=== PATIENT | male | born 1985 | race Hispanic/Latino ===

== ENCOUNTER 2020-06-06 09:56 | Observation (INO) | payer SELFPAY ==
--- NOTE | ~2020-06-06 | XR_ITS ---
EXAMINATION: XR abdomen/kub 1V DATE: 06/07/2020 06:11 INDICATION: Right renal stone TECHNIQUE: A supine view of the abdomen on 2 radiographs was obtained. COMPARISON: 06/06/2020 FINDINGS: No interval change in a 7 x 4 mm proximal right ureteral stone projecting between the right transvers e processes of L2 and L3. Normal bowel gas pattern. Bone island at the left femoral head. IMPRESSION: 1. Unchanged 7 x 4 mm proximal right ureteral stone. Reviewed, dictated and finalized at location A.
--- NOTE | ~2020-06-06 | XR_ITS ---
XR abdomen/kub 1V 06/06/2020 12:03 Indication: Right sided ureteral stone Procedure: KUB Comparison: CT dated 06/06/2020 Findings: There is a proximal right ureteral stone at the L3 level measuring 7 x 4 mm. Bowel gas aneesh rene nonobstructive. No acute osseous abnormality. Impression: 1: Proximal right ureteral stone at the L3 level measuring 7 x 4 mm. Reviewed, dictated and finalized at location B. Impression: 1: Proximal right ureteral stone at the L3 level measuring 7 x 4 mm.
--- NOTE | ~2020-06-06 | XR_ITS ---
EXAMINATION: XR retrograde pyelo w/stent RT EXAM DATE: 06/07/2020 09:53 INDICATION: Right-sided retrograde stent placement. TECHNIQUE: Fluoroscopy used during XR retrograde pyelo w/stent RT performed by Dr. Tavo cantu. Total fluoroscopic time of 0.4 minutes. A total of 10 images obtained for the exam. The DAP for this procedure was 313 radcm2. FINDINGS: At Risk Specialist image demonstrates 7 mm proximal right ureteral stone. Images demonstrate cannulation of the right ureter, injection of it with mild right-sided hydronephrosis. A double-J ureteral stent was placed. Correlate with procedure note. IMPRESSION: Mild right hydronephrosis. Stent in position. Reviewed, dictated and finalized at location A.
--- NOTE | ~2020-06-06 | CT_ITS ---
EXAMINATION: CT abdomen pelvis wo con EXAM DATE: 06/06/2020 11:34 INDICATION: Right flank pain. TECHNIQUE: Spiral CT of the abdomen and pelvis was performed without contrast. Axial, coronal and sag ittal images were reviewed. The dose-length product (DLP) for this examination was 271.11 mGy-cm. T he exposure was tailored according to patient size (auto mA exposure control), and iterative reconstr uction (ASIR) was used as additional dose reduction technique. There is no prior study for compariso n. FINDINGS: There is a right proximal ureteral stone measuring up to 7 mm in size, with mild to moderat e obstructive nephropathy. There are two 3 mm left superior calyceal stones. There is a left renal fl uid density 3 cm lesion most likely a cyst. The prostate is unremarkable. The bladder is unremarkab le. The liver, spleen, adrenal glands and pancreas are unremarkable. Gallbladder not identified, laurel carpenter likely has had cholecystectomy. There is no retroperitoneal or pelvic lymphadenopathy. There is a large right lower quadrant fat-containing hernia dissecting in a cephalad direction betwee n the right external and internal oblique muscles. The abdominal wall defect measures about 3 cm in d iameter, with the herniated portion measuring about 9 cm in diameter by 3 cm in thickness. The appendix is not positively visualized. There is no pericecal inflammatory change to suggest appe ndicitis. The stomach and small bowel are unremarkable. There is expected amount of colonic stool. No free intraperitoneal gas. The heart is normal in size. There are no pericardial or pleural e ffusions. The lung bases are unremarkable. The bones are unremarkable. IMPRESSION: 1. Right proximal ureteral 7 mm stone, mild to moderate obstructive nephropathy. consultants dereck d appreciate baseline KUB. 2. Small left nephrolithiasis. 3. Large right lower quadrant abdominal wall fat-containing hernia. Reviewed, dictated and finalized at location A. IMPRESSION: 1. Right proximal ureteral 7 mm stone, mild to moderate obstructive nephropath y. consultants would appreciate baseline KUB. 2. Small left nephrolithiasis. 3. Large right lower quadrant abdominal wall fat-containing hernia.
[2020-06-06 10:19] VITALS: BP 128/86; PULSE 71; RESP 18; TEMP 36.1; O2SAT 98
[2020-06-06 10:36] LABS: Basophils Percent Auto 0.2 % (0.2-1.2); Eosinophils Percent Auto 0.3 % (0-4.4); Hemoglobin 17.8 g/dL (14.0-18.0); Immature Granulocyte Absolute 0.02 K/mm3 (0.00-0.031); Immature Granulocyte Percent A 0.2 % (0-0.5); Lymphocytes Absolute Auto 1.86 K/mm3 (0.9-3.2); Lymphocytes Percent Auto 19.1 % (18.3-44.2); Mean Corpuscular HGB Conc 35.6 g/dl (32-36); Mean Corpuscular Hemoglobin 31.9 pg (26-34); Mean Corpuscular Volume 89.6 fl (80-100); Mean Platelet Volume 9.8 fl (7.4-10.4); Monocytes Percent Auto 9.9 % (2.6-8.5); Neutrophils Absolute Auto 6.9 K/mm3 (1.3-6.7); Neutrophils Percent Auto 70.3 % (45.5-73.1); Platelet Count Result 319 k/mm3 (150-375); Red Blood Count 5.58 M/mm3 (4.6-6.20); Red Cell Distribution Width 12.9 % (11.5-14.5); White Blood Count 9.8 K/mm3 (4.5-10.0)
[2020-06-06 10:46] LABS: Anion Gap 10 mmol/L (8-16); Blood Urea Nitrogen 9 mg/dL (9-20); Calcium 8.8 mg/dL (8.4-10.2); Carbon Dioxide 27 mmol/L (22-30); Chloride 101 mmol/L (98-107); Estimated CRCL calculation 61 ml/min; Estimated Glomerular Filt Rate 59; Glucose 124 mg/dL (75-110); Potassium 3.7 mmol/L (3.4-5.0); Sodium 138 mmol/L (137-145)
[2020-06-06 11:29] LABS: Add Urine Microscopic? YES; Appearance Urine Clear (Clear); Bilirubin Urine Negative (Negative); Blood Urine 1+ (Negative); Color Urine Yellow (Yellow); Glucose Urine UA Negative (Negative); Ketones Urine Trace mg/dL (Negative); Leukocyte Esterase Ur Negative LEU/UL (Negative); Mucus Urine Rare /lpf; Nitrate Urine Negative (Negative); Protein Urine 1+ mg/dL (Negative); RBC Urine 21-50 /hpf (0-2); Specific Grav Ur 1.019 (1.001-1.035); Squamous Epithelial Cell Urine Rare /hpf (Few); WBC Urine 0-3 /hpf
[2020-06-06] MEDS: ONDANSETRON INJ 4 MG/2 ML VIAL IV PUSH (11:36)
[2020-06-06] MEDS: SODIUM CHLORIDE 0.9% IV 1,000 ML 999 ML IV CONT (11:36)
[2020-06-06] MEDS: KETOROLAC 15 MG/ML VIAL (*BKC) IV PUSH (11:38)
--- NOTE | 2020-06-06 11:56 | ED.GENADULT ---
HPI - General Adult General Chief complaint: Nausea/Vomiting/Diarrhea Stated complaint: ABD/R FLANK PAIN Time Seen by Provider: 06/06/20 10:57 History of Present Illness HPI narrative: Patient is a 34-year-old male who presents ER with right-sided flank pain. Ongoing for last 4 days. Associated with hematuria as well as some dysuria. Reports mild chills but no fevers. Has had similar pain in the past but no formal diagnosis. Told he could have had a kidney stone at one point. Has tried Tylenol without improvement of pain. Pain was intermittent at onset but now it is more persistent and radiates from the right flank down into the right groin. Related Data Allergies Allergy/AdvReac Type Severity Reaction Status Date / Time No Known Allergies Allergy Verified 06/06/20 10:26 Review of Systems Review of Systems: All systems reviewed & are unremarkable except as noted in HPI and below Constitutional: Constitutional: Reports chills, Denies fever(s) and Denies weakness ENT: Denies nasal congestion and Denies sore throat Cardiovascular: Cardiovascular: Denies chest pain and Denies rapid heart rate Respiratory: Respiratory: Denies cough and Denies dyspnea Gastrointestinal: Gastrointestinal: Reports heartburn, Denies diarrhea, Reports nausea and Reports vomiting Genitourinary: Genitourinary: Reports hematuria, Reports dysuria and Reports urinary frequency PMFSH Past Medical History Medical History (Updated 06/06/20 @ 14:34 by Baljeet Riley MD) Healthy adult male Surgical History Surgical History (Updated 06/06/20 @ 11:57 by Baljeet Riley MD) History of appendectomy History of cholecystectomy Social History Social History (Updated 06/06/20 @ 11:57 by Baljeet Riley MD) Smoking status: Never smoker Exam Narrative: Exam Narrative: GENERAL: Well-appearing, well-nourished, and in no acute distress. HEAD: Normocephalic, atraumatic. ENT: Mucous membranes moist. CHEST: Clear to auscultation. No respiratory distress. HEART: Regular rate and rhythm. Normal peripheral pulses. ABDOMEN: Soft, nontender, nondistended. No CVA tenderness. EXTREMITIES: Normal range of motion. No edema. NEURO: NAlert and oriented x3. PSYCH: Normal mood and affect. Course Course Emergency Course: Discussed with Dr. Petersen. Patient will be admitted to go to the OR tomorrow. Will control pain with scheduled Tylenol and as needed morphine. Patient will strain his urine. Vital Signs Vital signs: Vital Signs Temperature 97.0 F L 06/06/20 10:19 Pulse Rate 71 06/06/20 10:19 Respiratory Rate 18 06/06/20 10:19 Blood Pressure 128/86 06/06/20 10:19 Pulse Oximetry 98 06/06/20 10:19 Temperature 97.0 F L 06/06/20 10:19 Pulse Rate 69 06/06/20 13:47 Respiratory Rate 17 06/06/20 13:47 Blood Pressure 125/65 06/06/20 13:47 Pulse Oximetry 100 06/06/20 13:47 Medical Decision Making Vital Signs Vital Signs: Vital Signs Temperature 97.0 F L 06/06/20 10:19 Pulse Rate 71 06/06/20 10:19 Respiratory Rate 18 06/06/20 10:19 Blood Pressure 128/86 06/06/20 10:19 Pulse Oximetry 98 06/06/20 10:19 Temperature 97.0 F L 06/06/20 10:19 Pulse Rate 69 06/06/20 13:47 Respiratory Rate 17 06/06/20 13:47 Blood Pressure 125/65 06/06/20 13:47 Pulse Oximetry 100 06/06/20 13:47 Lab Data Result diagrams: 06/06/20 10:26 06/06/20 10:26 Labs: Lab Results 06/06/20 06/06/20 06/06/20 Range/Units 10:26 10:26 10:55 WBC 9.8 (4.5-10.0) K/mm3 RBC 5.58 (4.6-6.20) M/mm3 Hgb 17.8 (14.0-18.0) g/dL Hct 50.0 (42.0-52.0) % MCV 89.6 (80-100) fl MCH 31.9 (26-34) pg MCHC 35.6 (32-36) g/dl RDW 12.9 (11.5-14.5) % Plt Count 319 (150-375) k/mm3 MPV 9.8 (7.4-10.4) fl Immature Gran % (Auto) 0.2 (0-0.5) % Neut % (Auto) 70.3 (45.5-73.1) % Lymph % (Auto) 19.1 (18.3-44.2) % [place] % (Auto) 9.9 H (2.
[2020-06-06 13:47] VITALS: BP 125/65; PULSE 69; RESP 17; O2SAT 100
[2020-06-06 15:08] VITALS: BP 116/72; PULSE 69; RESP 16; O2SAT 98
--- NOTE | 2020-06-06 15:20 | PC.NURSE ---
This patient, Judd Gallardo, was admitted to 3 [facility] Surg Room 310-01. Patient/family oriented to hospital policies and general routines including ID bracelet, bed and alarms, visiting hours, pain management, procedures, bathroom and other care routines, personal items, smoking policy, room service/diet, and visiting hours.Report received from Michelle CAMARENA. Lavern holloway. Information on how to activate the Rapid Response Team has been discussed. Patient/Family are encouraged to report perceived risks to care and to ask questions if they do not understand what they are told or what they should do.
[2020-06-06 15:30] VITALS: BP 127/74; PULSE 65; RESP 16; TEMP 36.3; O2SAT 98
[2020-06-06 15:46] VITALS: BMI 27.4
[2020-06-06] MEDS: SODIUM CHLORIDE 0.9% IV 1,000 ML 125 ML IV CONT (15:49)
--- NOTE | 2020-06-06 16:17 | PM.IMHP ---
H&P: HPI History of Present Illness Date/Time: 06/06/20 16:17 This is a very pleasant 34-year-old Welsh-speaking male. He seems the request of the emergency room here at [facility]. He is here working from [place]. He has never had a kidney stone before. He has been suffering with right-sided flank pain for the last few days. He denies any visible blood in the urine. He denies any dysuria. He denies any fevers. A CT scan shows a 7 mm right proximal ureteral stone. There is some nonobstructing left-sided small kidney stones. He is currently feeling much improved with a dose of Toradol given in the emergency room this morning before it became aware of him. He was admitted for possible definitive stone management during this admission versus a stent with lithotripsy either this or next Saturday. Of note much of this history was taken with the aid of an utilization manager Chief Complaint: Ureteral stone Review of Systems Review of Systems: All systems reviewed & are unremarkable except as noted in HPI and below PMFSH Past Medical History Medical History (Updated 06/06/20 @ 16:21 by Perry Petersen MD) Healthy adult male Surgical History Surgical History (Updated 06/06/20 @ 11:57 by Baljeet Riley MD) History of appendectomy History of cholecystectomy Social History Social History (Updated 06/06/20 @ 11:57 by Baljeet Riley MD) Smoking status: Never smoker Meds Home Medications and Allergies Allergies Allergy/AdvReac Type Severity Reaction Status Date / Time No Known Allergies Allergy Verified 06/06/20 10:26 Vital Signs Vital Signs - 24 hr 06/06/20 10:19 06/06/20 13:47 06/06/20 15:08 Temperature 97.0 F L Pulse Rate 71 69 69 Respiratory Rate 18 17 16 Blood Pressure 128/86 125/65 116/72 Pulse Oximetry 98 100 98 Exam Const: General: cooperative, healthy appearing, well developed, alert, awake and Physically active; No anxious or combative Nutritional Appearance: average body habitus Orientation/consciousness: patient oriented x3 Limitations: no limitations HENMT: Head: normal to inspection Ears: hearing grossly normal bilaterally General nose exam: Normal external nose present Face and sinus: normal facial exam Mouth: Yes Normal oral and palatal mucosa present Eyes: General: appearance normal, both eyes and all related structures Chest: Chest palpation & inspection: normal inspection of the chest Resp: Effort & Inspection: normal respiratory effort, able to speak in complete sentences, not labored, no nasal flaring and no respiratory distress GI: Inspection: normal to inspection Skin: General skin exam: normal color and no rashes or lesions noted Neuro: General: patient oriented x3 Extrem: General: normal to inspection and full ROM Psych: Appearance: grossly normal and well kempt H&P: Results Labs Labs: Short CBC 06/06/20 Range/Units 10:26 WBC 9.8 (4.5-10.0) K/mm3 Hgb 17.8 (14.0-18.0) g/dL Hct 50.0 (42.0-52.0) % Plt Count 319 (150-375) k/mm3 BMP 06/06/20 10:26 Sodium 138 Potassium 3.7 Chloride 101 Carbon Dioxide 27 BUN 9 Creatinine 1.40 H Glucose 124 H Calcium 8.8 Urine 06/06/20 Range/Units 10:55 Urine Color Yellow (Yellow) Urine Appearance Clear (Clear) Urine pH 6.0 (5.0-9.0) Ur Specific [place] 1.019 (1.001-1.035) Urine Protein 1+ H (Negative) mg/dL Urine Glucose (UA) Negative (Negative) mg/dL Assessment and Plan Assessment and plan (1) Calculus of proximal right ureter: Code(s): N20.1 - Calculus of ureter Status: Acute Assessment and Plan: He will be kept NPO after midnight. We discussed right ureteral stent with delayed lithotripsy in the next week or 2. There may be some coordination issues as the patient is only here working from [place]. Another option would be ureteroscopy, but his stone is larger and in the proximal ureter. I will discuss th
[2020-06-06 21:38] VITALS: BP 122/71; PULSE 62; RESP 18; TEMP 36.6; O2SAT 97
[2020-06-07] VITALS (12 sets, daily range): BP systolic 98–124; BP diastolic 63–85; PULSE 57–96; RESP 15–20; TEMP 36.2–36.6; O2SAT 93–100
[2020-06-07] MEDS: SODIUM CHLORIDE 0.9% IV 1,000 ML 125 ML IV CONT (00:28)
--- NOTE | 2020-06-07 09:06 | WPDANESEPPF ---
Anes - Initial Pre Proc Eval Procedure: Operation Date: 06/07/20 15:15 Proposed Procedures p Cystoscopy,Right Stent Placement - Tavo Grimaldo MD Date/Time: 06/07/20 09:06 Surgeon: Perry Petersen MD Pre Op Diagnosis: right mid ureter stone Patient Data Age: 34 Gender: M Height: 5 ft 7 in Weight: 79.5 kg Last Vital Signs Temp 97.8 F 06/07/20 05:36 Pulse 57 L 06/07/20 05:36 Resp 18 06/07/20 05:36 BP 99/70 L 06/07/20 05:36 Pulse Ox 98 06/07/20 09:00 Allergies Allergy/AdvReac Type Severity Reaction Status Date / Time No Known Allergies Allergy Verified 06/06/20 18:23 Home Medications Medication Instructions Recorded Confirmed Type No Home Medications 06/06/20 06/06/20 History Laboratory Tests 06/06/20 06/06/20 06/06/20 10:26 10:26 10:55 WBC 9.8 K/mm3 K/mm3 (4.5-10.0) RBC 5.58 M/mm3 M/mm3 (4.6-6.20) Hgb 17.8 g/dL g/dL (14.0-18.0) Hct 50.0 % % (42.0-52.0) MCV 89.6 fl fl (80-100) MCH 31.9 pg pg (26-34) MCHC 35.6 g/dl g/dl (32-36) RDW 12.9 % % (11.5-14.5) Plt Count 319 k/mm3 k/mm3 (150-375) MPV 9.8 fl fl (7.4-10.4) Immature Gran % (Auto) 0.2 % % (0-0.5) Neut % (Auto) 70.3 % % (45.5-73.1) Lymph % (Auto) 19.1 % % (18.3-44.2) [place] % (Auto) 9.9 % H % (2.6-8.5) Eos % (Auto) 0.3 % % (0-4.4) Baso % (Auto) 0.2 % % (0.2-1.2) Lymph # (Auto) 1.86 K/mm3 K/mm3 (0.9-3.2) [place] # (Auto) 1.0 K/mm3 H K/mm3 (0.1-0.6) Eos # (Auto) 0.0 K/mm3 K/mm3 (0-0.3) Baso # (Auto) 0.0 K/mm3 K/mm3 (0.0-0.1) Abs Immat Gran (auto) 0.02 K/mm3 K/mm3 (0.00-0.031) Absolute Neuts (auto) 6.9 K/mm3 H K/mm3 (1.3-6.7) Absolute Nucleated RBC 0.0 K/mm3 K/mm3 (0.0-0.012) Nucleated RBC % 0.0 % % (0.0-0.2) Sodium 138 mmol/L mmol/L (137-145) Potassium 3.7 mmol/L mmol/L (3.4-5.0) Chloride 101 mmol/L mmol/L (98-107) Carbon Dioxide 27 mmol/L mmol/L (22-30) Anion Gap 10 mmol/L mmol/L (8-16) BUN 9 mg/dL mg/dL (9-20) Creatinine 1.40 mg/dL H mg/dL (0.7-1.3) Estim Creat Clear Calc 61 ml/min ml/min Estimated GFR 59 (59 - ) Glucose 124 mg/dL H mg/dL (75-110) Calcium 8.8 mg/dL mg/dL (8.4-10.2) Urine Color Yellow (Yellow) Urine Appearance Clear (Clear) Urine pH 6.0 (5.0-9.0) Ur Specific [place] 1.019 (1.001-1.035) Urine Protein 1+ mg/dL H mg/dL (Negative) Urine Glucose (UA) Negative mg/dL mg/dL (Negative) Urine Ketones Trace mg/dL mg/dL (Negative) Ur Blood (Man) 1+ H (Negative) Urine Nitrate Negative (Negative) Urine Bilirubin Negative (Negative) Urine Urobilinogen 2.0 mg/dL H mg/dL (<2.0) Leukocyte Esterase Rfl Negative RUDY/UL RUDY/UL (Negative) Urine RBC 21-50 /hpf H /hpf (0-2) Urine WBC 0-3 /hpf /hpf Ur Squamous Epith Cells Rare /hpf /hpf (Few) Urine Mucus Rare /lpf /lpf Patient hx anesthesia problems: none Family hx anesthesia problems: none PMFSH Past Medical History Medical History (Updated 06/06/20 @ 16:21 by Perry Petersen MD) Healthy adult male Surgical History Surgical History (Updated 06/06/20 @ 11:57 by Baljeet Riley MD) History of appendectomy History of cholecystectomy Social History Social History (Updated 06/06/20 @ 11:57 by Baljeet Riley MD) Smoking status: Never smoker Alcohol intake: never Substance use: never Gender identity (if verbalized by the patient): Male Spiritual care concerns: No Anes - Eval Final PreProcedure Day of Procedure 06/07/20 09:06 Mikey
[2020-06-07] MEDS: LACTATED RINGERS 1,000 ML 30 ML IV CONT (09:09)
--- NOTE | 2020-06-07 09:24 | WPDHPUPDATE1 ---
History and Physical Update Update Date/Time: 06/07/20 09:24 History and Physical has been reviewed, including an updated exam of the patient. There are NO changes in the patient's condition. Risks, benefits, and alternatives have been discussed and questions answered. Patient agrees to proceed with procedure. Proceed with cysto, right retrograde, right stent
[2020-06-07] MEDS: ceFAZolin 2 GM/D5W 50 ML 2 GM/50 ML BAG IVPB (09:32)
--- NOTE | 2020-06-07 09:48 | P.OP_ITS ---
Procedure Note - Detailed Date of procedure: 06/07/20 Pre-op diagnosis: right mid ureter stone Post-op diagnosis: same Procedure performed: Cysto, right retrograde pyelogram, right ureteral stent placement 4.8 [place] contour Description of procedure: Patient is taken the operative suite and correctly identified. Once anesthesia was obtained he was placed in dorsal lithotomy position and prepped and draped usual sterile fashion. Nineteen [place] scope was inserted the bladder in direct vision. There were no strictures. Bladder is without any tumors. The right ureteral orifice was cannulated with a [place] and a pyelogram was performed. Stone was visualized in the proximal ureter. Contrast made its way up into the kidney. A guidewire was then placed past the stone up to the renal pelvis. 4.8 [place] contour stent was then placed with the proximal end coiled in the renal pelvis and the distal in the bladder. Bladder was drained. 2% viscous lidocaine was inserted into the urethra. Patient taken recovery room stable condition. Patient will require a outpatient lithotripsy in the near future. Anesthesia: GLMA Surgeon: Tavo Grimaldo MD Drains: Yes Packing: No Pathology: none sent Complications: No immediate complications Condition: stable Disposition: PACU
[2020-06-07] MEDS: LIDOCAINE HCL 2% GEL UROJET 10 ML PKG MUCOUS MEM (09:49)
--- NOTE | 2020-06-07 10:27 | SUR.PHASEI ---
1027 sbar faxed floor notified
[2020-06-07] MEDS: HYDROcodone/acetaminophen (*CRX) 5-325 MG TABLET 2 TAB PO ×2 (12:10→18:00)
--- NOTE | 2020-07-08 09:03 | P.DS_ITS ---
DS: Admitting Diagnosis Admitting Diagnosis Admitting Diagnosis: Ureteral Stone DS: Discharge Diagnosis Discharge Diagnosis (1) Calculus of proximal right ureter: Code(s): N20.1 - Calculus of ureter Status: Acute DS: Summary Hospital Course Hospital Course: See note below. Time Spent with Patient Time attestation: The patient was admitted following a visit to the ER for right flank pain and being diagnosed via CT scan with a 7mm right proximal ureteral stone for pain control. He went to the OR the following day on 06/07/2020 to have a Cysto, right retrograde pyelogram, right ureteral stent placement 4.[address] Malorie Grimaldo. He then proceeded to the recovery room in stable condition and to the floor for further observation. He tolerated the procedure and recovery well without any complaints. He was then discharged home with diet and activity as tolerated. he was not on any home medications to resume. He was to follow up for a Right ESWL on 06/11/2019, which was completed wi [facility]. Exam Resp: Effort & Inspection: normal respiratory effort Cardio: Rate: regular rate GI: GI Palp: Yes Soft to palpation and No Tenderness to palpation present (GI) : General: Yes no CVA tenderness Extrem: General: no edema Discharge Plan Discharge Consulting providers: eTnisha Vicente ; Jorge Hagen ; Omar Magana ; Tobias Anton Discharging Clinician: Tavo Grimaldo Patient Disposition: Home, Self-Care Activity: as tolerated Diet: as tolerated Discharge Instructions: Please call Dr. Grimaldo' office ([phone]) to schedule a follow-up appointment if you plan to stay in the area. If you return to [place], make an appointment with a urologist to get your stent removed. Patient Instructions: Antibiotic Form, Ureteral Stones (DC), Cystoscopy (DC), Ureteral Stent Placement (DC) Stand Alone Forms: General Discharge Information Follow-up/Referrals: Tavo Grimaldo MD [Physician] - Discharge Medications: No Action No Home Medications RF: 0 Date of admission: 06/06/20 14:30 Primary Care Provider: PHYSICIAN,[employer] Admitting Provider: Perry Petersen Attending physician on admission: Tavo Grimaldo Condition: Stable
== END 2020-06-07 19:00 | disposition home or self-care (01) ==
LOC: ANHED 14:44 → ANH3MEDSUR 16:08
PROVIDERS: Emergency Medicine; Admitting Provider Urology; Emergency Provider Emergency Medicine; Visit Provider Urology
PROC: (CPT 52352; principal; 2020-06-07 15:15)
DX: N13.2 Hydronephrosis with renal and ureteral calculous obstruction (principal); E66.9 Obesity, unspecified; Z68.27 Body mass index [BMI] 27.0-27.9, adult
CPT/HCPCS: 52332; 36415; 74018; 74176; 74420; 80048; 81001; 85025; 87086; 96361; 96365; 96367; 96375; 96376; 99285; A9270; C1758; C1769; C2617; G0378; G0379; J0131; J0690; J1100; J1885; J2250; J2405; J2704; J3010; J7030; J7120; Q9966

== ENCOUNTER → 2020-06-09 00:34 | Outpatient (CLI) | payer SELFPAY ==
[2020-06-09 17:33] LABS: SARS-CoV-2 RNA PCR Negative
== END ==
PROVIDERS: Visit Provider Urology
DX: Z01.812 Encounter for preprocedural laboratory examination (principal); Z20.822 Contact with and (suspected) exposure to COVID-19
CPT/HCPCS: C9803; U0003; U0005

== ENCOUNTER 2020-06-10 04:45 | Day surgery (SDC) | payer SELFPAY ==
[2020-06-08 14:40] VITALS: BMI 25.9
--- NOTE | 2020-06-08 14:43 | PC.NURSE ---
No change in health history since admission confirmed with pt thru lang interpreter service. Inserter - Kayla ID# [id number].
[2020-06-10] VITALS (8 sets, daily range): BP systolic 93–120; BP diastolic 62–91; PULSE 64–92; RESP 14–22; TEMP 36.1–36.8; O2SAT 94–100; BMI 26.2
--- NOTE | ~2020-06-10 | XR_ITS ---
XR abdomen/kub 1V 06/10/2020 12:00 Indication: Preop lithotripsy Procedure: KUB Comparison: 06/07/2020 Findings: There is a right internal ureteral stent. There is a stone at the L2 level just below the t ransverse process. Bowel gas pattern nonobstructive. There are stones in the upper pole of the left k idney. No acute osseous abnormality. Impression: 1: Proximal right ureteral/UVJ stone at the L2 level. 2: Left nephrolithiasis. Reviewed, dictated and finalized at location B. Impression: 1: Proximal right ureteral/UVJ stone at the L2 level. 2: Left nephrolithiasis.
--- NOTE | 2020-06-10 12:08 | WPDHPUPDATE1 ---
History and Physical Update Update Date/Time: 06/10/20 12:08 History and Physical has been reviewed, including an updated exam of the patient. There are NO changes in the patient's condition. Risks, benefits, and alternatives have been discussed and questions answered. Patient agrees to proceed with procedure. Proceed with ESWL of right ureteral calculus
--- NOTE | 2020-06-10 12:46 | P.PNAN_ITS ---
Anes - Initial Pre Proc Eval Procedure: Operation Date: 06/10/20 14:00 Proposed Procedures p Right Ureteral Extracorporeal Shock Wave Lithotripsy - Tavo Grimaldo MD Date/Time: 06/10/20 12:46 Surgeon: Tavo Grimaldo MD Pre Op Diagnosis: Right Ureteral Stone Patient Data Age: 34 Gender: M Height: 5 ft 7 in Weight: 75.3 kg Allergies Allergy/AdvReac Type Severity Reaction Status Date / Time No Known Allergies Allergy Verified 06/10/20 12:31 Home Medications Medication Instructions Recorded Confirmed Type No Home Medications 06/06/20 06/10/20 History Patient hx anesthesia problems: none Family hx anesthesia problems: none PMFSH Past Medical History Medical History Healthy adult male Surgical History Surgical History History of appendectomy History of cholecystectomy Social History Social History Smoking status: Never smoker Alcohol intake: never Substance use: never Gender identity (if verbalized by the patient): Male Spiritual care concerns: No Anes - Eval Final PreProcedure Day of Procedure 06/10/20 12:46 Patient weight: overweight Heart: regular rate and rhythm Lungs: clear to auscultation Airway: Mallampati scale class II Neurological: other (alert) Last oral intake: >/= 8 hours ASA classification: II Emergent: no Anesthetic plan: proceed Anesthesia type and monitoring: general LMA and standard monitoring Other findings: responses per motor vehicle parts interpreter Informed Consent: The patient's anesthetic plan and its attendant risks and benefits were discussed with the patient/family/POA. Questions were solicited and answers provided to the satisfaction of the patient/family/POA.
[2020-06-10] MEDS: LACTATED RINGERS 1,000 ML 30 ML IV CONT ×2 (13:05→14:49)
--- NOTE | 2020-06-10 13:22 | SUR.PREOP ---
1225; PT MAINLY AMERICAN SPEAKING. USED DOCUMENT DESIGN SPECIALIST FOR PREOP QUESTIONS, CONSENT FOR SURGERY. SPOUSE AT BEDSIDE, SHE SPEAKS SLIGHTLY MORE GABONESE. ALL QUESTIONS ANSWERED PER DOCUMENT DESIGN SPECIALIST
[2020-06-10 13:34] LABS: INR 0.9
[2020-06-10 13:35] LABS: Partial Thromboplastin Time 28.8 SECONDS (22.3-36.8)
[2020-06-10] MEDS: ceFAZolin 2 GM/D5W 50 ML 2 GM/50 ML BAG IVPB (13:35)
--- NOTE | 2020-06-10 14:22 | PM.PROC ---
Procedure Note - Detailed Date of procedure: 06/10/20 Pre-op diagnosis: Right Ureteral Stone Post-op diagnosis: same Procedure performed: ESWL right ureteral calculus. Description of procedure: Patient is taken the operative suite and correctly identified. Once anesthesia was obtained stone was localized in both planes. After 2700 shocks the patient became light with anesthetic. He then had some emesis. At this point it was decided to terminate the procedure. He is taken recovery room stable condition. Patient is going to [place] on Saturday will need to follow up with urologist locally for another KUB and to see how well the stone is fragmented. Anesthesia: GLMA Surgeon: Tavo Grimaldo MD Drains: Yes Packing: No Pathology: none sent Complications: No immediate complications Condition: stable Disposition: PACU
--- NOTE | 2020-06-10 14:58 | SUR.PHASEI ---
USE OF STRATUS FOR INTERPRETATION, CLIVE [id number].DENIES NAUSEA,SLIGHT PAIN,TOLERABLE.
[2020-06-10] MEDS: fentaNYL CITRATE INJ (*CRX) 100 MCG/2 ML VIAL 25 MCG IV PUSH (15:12)
--- NOTE | 2020-07-07 15:05 | PM.DS ---
DS: Admitting Diagnosis Admitting Diagnosis Admitting Diagnosis: Right Ureteral Stone DS: Discharge Diagnosis Discharge Diagnosis (1) Calculus of proximal right ureter: Code(s): N20.1 - Calculus of ureter Status: Acute DS: Summary Hospital Course Hospital Course: See below Time Spent with Patient Time attestation: The patient was admitted following a visit to the ER for right flank pain and being diagnosed via CT scan with a 7mm right proximal ureteral stone for pain control. He went to the OR the following day on 06/07/2020 to have a Cysto, right retrograde pyelogram, right ureteral stent placement 4.[address] Malorie Grimaldo. He then proceeded to the recovery room in stable condition and to the floor for further observation. He tolerated the procedure and recovery well without any complaints. He was then discharged home with diet and activity as tolerated. he was not on any home medications to resume. He was to follow up for a Right ESWL on 06/11/2019, which was completed without problem. Exam Resp: Effort & Inspection: normal respiratory effort Cardio: Rate: regular rate GI: GI Palp: Yes Soft to palpation and No Tenderness to palpation present (GI) : General: No no CVA tenderness Extrem: General: no edema Discharge Plan Discharge Patient Disposition: Home, Self-Care Discharge Instructions: Page [address] [facility] ORDERS PATIENT CARE AFTER LITHOTRIPSY HIGH FLUID VOLUME TO PREVENT KIDNEY STONES A high fluid volume will result in a high urine output, which will decrease your kidney?s ability to form kidney stones. HOW MUCH FLUID You should be drinking more than your think is enough; two or three quarts a day is our recommendation. A gallon of fluid should be consumed if you have a rigorous exercise program or if you are exposed to extreme heat. WHAT TYPE OF FLUID Water is the best fluid, and you should try to drink as much as possible. Other allowed fluids are: one to two cups of coffee a day, diet white sodas (jann linda, 7-Up, Sprite, etc.), fruit juices (apple, orange, grapefruit, pineapple), flavored seltzer and sugar-free powder packaged liquids. WHAT TO AVOID Hot or iced tea, shima (limit to 8-12 ounces per day) AM I DRINKING ENOUGH Your urine should be as clear as water. For the first few months you may want to check your progress by measuring your urine for a 24-hour interval. Your volume should be over two quarts. OTHER RECOMMENDATIONS Most stones are believed to form at night. It is important for you to drink one to two 10 ounce glasses of fluid before you go to bed. It is important that you wake to urinate. Then drink one to two more glasses of fluid. HOW LONG WILL I NEED TO DO THIS For the rest of your life to prevent kidney stones. HELPFUL HINTS 1. Never pass a water fountain without taking a drink. 2. Purchase a two quart thermos bottle, fill with fluid daily: a. At work, do not leave until finished b. On the go, do not go home until finished c. At home, finish daily As you have previously been told, treatment with ESWL does not make your stone magically disappear. The purpose of ESWL is to pulverize stones so that the fragments can be passed through the urinary tract. You may or may not be passing stone fragments when you leave the hospital. If you are not, do not be alarmed as some patients do not begin passing fragments until several weeks or, occasionally, one to two months after treatment. A high intake of fluids, at least 8 glasses for several days, will help the fragments pass. If you have passed stone fragments in the hospital and have given them to your nurse, you need not save any more fragments. However, if you have not passed any fragments prior to leaving the hospital, please strain your urine with the strainer which your nurse will give to you. Please save some stone fragments and give them to your
== END 2020-06-10 16:50 | disposition home or self-care (01) ==
PROVIDERS: Visit Provider Urology
PROC: (CPT 50590; principal; 2020-06-10 14:00)
DX: N20.1 Calculus of ureter (principal); R11.10 Vomiting, unspecified
CPT/HCPCS: 50590; 36415; 74018; 85610; 85730; J0690; J1100; J2250; J2405; J2704; J3010; J7120